=== PATIENT | female | born 1995 | race Caucasian/White ===

== ENCOUNTER 2023-02-03 08:41 | Outpatient (REF) | payer OTHER, SELFPAY ==
[2023-02-03 10:58] LABS: MANUAL DIFF FLAG NO
[2023-02-03 11:27] LABS: Basophils Absolute Auto 0.1 X10*3/uL (0.0-0.2); Eosinophils Absolute Auto 0.3 X10*3/uL (0.0-0.4); Eosinophils Percent Auto 4.6 % (0-4); Hematocrit 39.5 % (37.0-47.0); Imm Gran Abs Auto 0.01 X10*3/uL (0.00-0.03); Imm Gran Pct Auto 0.1 % (0.0-0.4); Lymphocytes Absolute Auto 2.6 X10*3/uL (1.2-4.9); Lymphocytes Percent Auto 39.2 % (20-40); Mean Corpuscular HGB Conc 32.9 g/dl (31.0-35.0); Mean Corpuscular Hemoglobin 29.1 pg (27.0-33.0); Mean Corpuscular Volume 88.4 fL (80.0-98.0); Mean Platelet Volume 10.4 fL (9.4-12.3); Monocytes Absolute Auto 0.3 X10*3/uL (0.1-1.2); Monocytes Percent Auto 4.8 % (2-11); Neutrophils Absolute Auto 3.4 x10*3/uL (2.0-8.3); Neutrophils Percent Auto 50.3 % (45-73); Platelet Count 430 X10*3/uL (160-400); Red Blood Count 4.47 X10*6/uL (4.20-5.50); Red Cell Distribution Width 12.5 % (11.0-16.0); White Blood Count 6.7 X10*3/uL (4.8-10.8)
[2023-02-03 11:29] LABS: Appearance Urine Clear; Color Urine Yellow; Glucose Urine UA Negative (Negative); Leukocyte Esterase Urine Negative (Negative); Nitrite Urine Negative (Negative); PH 6.5 (5.0-9.0); UMIC TRIGGER UA YES; Urine Blood Trace (Negative); Urine Ketones Negative (Negative); Urine Protein Negative (Neg-Trace)
[2023-02-03 11:41] LABS: Bacteria Urine None Seen (None Seen); Hyaline Casts Urine 0-2 /LPF (0-2); WBC Urine 0-5 /HPF (0-5)
[2023-02-03 11:49] LABS: Alanine Aminotransferase 11 U/L (0-31); Albumin Level 4.3 g/dL (3.5-5.0); Alkaline Phosphatase 67 U/L (39-117); Anion Gap 13 (12-20); Aspartate Amino Transferase 16 U/L (5-31); Bilirubin Total 0.7 mg/dL (0.0-1.0); Blood Urea Nitrogen 11 mg/dL (9-16); Calcium 10.1 mg/dL (8.4-10.2); Carbon Dioxide 24 mmol/L (22-29); Chloride 107 mmol/L (96-108); Cholesterol 207 mg/dL; Estimated Glomerular Filt Rate > 60; Glucose Fasting 88 mg/dL (60-99); HDL Cholesterol 56 mg/dL; LDL Cholesterol Calculated 135 mg/dl; Sodium 140 mmol/L (135-145); TSH reflex Free T4 1.57 uIU/mL (0.32-4.0); Total Protein 7.2 g/dL (6.5-8.0); Triglycerides 80 mg/dL
[2023-02-03 12:13] LABS: Creatinine Urine 224.23 mg/dL; Microalbum/Creatinine Ratio Ur 8.4 ug/mg cr
[2023-02-04 01:52] LABS: Syphilis Screen Nonreactive (Nonreactive)
[2023-02-04 03:13] LABS: HBS Num1 25.82 mIU/mL (0-7.99); HBc Num1 0.07 S/CO (0.00-0.79); HBsAGNum1 0.34 S/CO (0.00-0.99); HIV AB/AG Nonreactive (Nonreactive); HIV Num 1 0.06 S/CO (0.00-0.99); Hepatitis B Core Antibody Nonreactive (Nonreactive); Hepatitis B Surface Antigen Negative (Negative); ~HepC Num1 0.11 S/CO (0.00-0.79); ~Hepatitis B Surface Antibody REACTIVE (Nonreactive); ~Hepatitis C Antibody Nonreactive (Nonreactive)
[2023-02-05 22:33] LABS: TS Negative Control Passed; TS Panel A 0; TS Panel B 0; TS Positive Control Passed; TSpotTB Negative (Negative)
== END 2023-02-03 08:42 | disposition home or self-care (01) ==
LOC: HO.WFDLDS 08:41
PROVIDERS: Visit Provider Family Medicine
DX: Z00.00 Encounter for general adult medical examination without abnormal findings (principal); I10 Essential (primary) hypertension; Z11.1 Encounter for screening for respiratory tuberculosis; Z20.2 Contact with and (suspected) exposure to infections with a predominantly sexual mode of transmission
CPT/HCPCS: 36415; 80053; 80061; 81001; 82043; 84443; 85025; 86481; 86704; 86706; 86780; 86803; 87340; 87389

== ENCOUNTER 2023-08-05 08:52 | Outpatient (REF) | payer OTHER, SELFPAY ==
[2023-08-05 17:50] LABS: CT PCR NOT DETECTED (Not Detect.); NG PCR NOT DETECTED (Not Detect.)
[2023-08-07 14:30] LABS: BV Int Neg Control Negative (Negative); BV Int Pos Control Positive (Positive)
[2023-08-11 05:04] LABS: HPV mRNA E6/E7 rflx Not Detected (Not Detected)
== END 2023-08-05 08:53 | disposition home or self-care (01) ==
LOC: HO.LNP 08:52
PROVIDERS: PCP Family Medicine; Visit Provider Advanced Practice Midwife
DX: Z01.419 Encounter for gynecological examination (general) (routine) without abnormal findings (principal); Z11.51 Encounter for screening for human papillomavirus (HPV); Z20.2 Contact with and (suspected) exposure to infections with a predominantly sexual mode of transmission
CPT/HCPCS: 0353U; 87480; 87510; 87624; 87660; 88142

== ENCOUNTER 2023-08-05 08:52 | Outpatient (AMB) | payer OTHER, SELFPAY ==
[2023-08-05 09:06] VITALS: BP 126/80; BMI 30.8
--- NOTE | 2023-08-05 09:06 | MHC.OFFVIS ---
Intake Vital Signs 08/05/23 09:06 Height 5 ft 3 in Weight 174 lb BMI 30.8 BP 126/80 Intake Visit Reasons: New patient Annual Intake Note: would like fertility counseling. 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 Information Interpreted: non-clinical & clinical Outside Machinist Apprentice: Outside Machinist Apprentice Present ([facility]) Allergies No Known Allergies Allergy (Verified 08/05/23 09:11) Medication List - Last Reconciled 08/05/23 by Shariat Keane CNM multivitamin 1 tab PO DAILY Is last menstrual period known: Yes Last menstrual period: 07/27/23 Post menopausal: No HPI New patient Annual HPI Details Patient is here for new salon supervisor exam her only issue is questioning fertility she has been keeping track of her cycle for years and especially in the last year and sometimes has 24 days cycle sometimes 25 or 26 and sometimes 28 if she were to give it an average she would say 26 days. She is aware of ovulation and other factors in her cycle that change breast tenderness PMS cervical mucus changes. She has asked her to go get checked because she thinks it would be easier to get him checked out which it would. They are both trying to get healthier and go to the gym and are working on lowering there cholesterol. 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 She turned 28 in April. [facility] Family History Maternal Uncle Substance use disorder Maternal Grandmother Substance use disorder Social History Housing: House Patient Tobacco Use Status: Never used Tobacco e-Cigarette/Vaping Use: Never Used Current occupational status: employed and student Current occupation: [employer] [place] Female Reproductive History Menstrual Age of Menarche: 7 Duration of menses: 3-5 days Date of last menstrual period: 07/27/23 control method: none Total pregnancies: 0 Physical Exam Vital Signs: Last Vital Signs BP 126/80 08/05/23 09:06 BMI result Body Mass Index 30.8 Const General: healthy appearing, comfortable, no acute distress, well developed and alert Nutritional Appearance: average body habitus Orientation/consciousness: patient oriented x3 Limitations: no limitations HEENT Head: Yes normocephalic Neck Neck: Yes normal visual inspection Thyroid: Thyroid normal Chest Chest palpation & inspection: normal inspection of the chest Breast/axilla inspection: normal inspection of the breasts and normal inspection of the axillae Breast/axilla palpation: normal palpation of the breasts and normal palpation of the axillae Resp Effort & Inspection: normal respiratory effort GI Inspection: Yes normal to inspection, No Abdominal wall edema and No distended Palpation (GI): Soft to palpation and nontender Other: Normal salon supervisor exam external exam within normal limits vagina pink and moist cervix nulliparous with clear whitish scant discharge cervix is long close thick mobile midposition uterus feels midposition adnexa non enlarged non tender good tone with Kegel bladder is full. General: Yes bladder normal to palpation External Female Exam: normal external appearance and normal appearance of the urethra Speculum Exam - Vagina: normal appearance of the vagina, normal palpation and normal vaginal discharge Speculum Exam - Cervix: normal appearance of the cervix, normal palpation and nontender Bimanual exam- vagina & uterus: normal bimanual exam, normal palpation, uterine size normal, bladder normal to palpation, consistency normal, normal palpation, uterine mobility normal, uterine shape normal, No Cervical tenderness present, non-tender and no cervical motion tenderness Bimanual Exam- Adnexa, other: normal adnexae, no masses, normal and No adnexal tenderness Neuro General: patient oriented x3 Assessment & Plan Assessment & Plan (1) Screening for cervical cancer: Comment: pap done 08/05/23. Code(s): Z12.4 - Encounter for screening for malignant neoplasm of cervix (2) Well woman exam with routine gynecological exam: Code(s): Z01.419 - Encounter for gynecological examination (general) (routine) without abnormal findings (3) Laboratory exam ordered as part of routine general medical examination: Code(s): Z00.00 - Encounter for general adult medical examination without abnormal findings Plan -----Discussed in this visit the following: healthy balanced diet, regular and consistent exercise, getting recommended health screens, doing the best she can for her particular health concerns, kegel exercises, pap smear screening and followup recommendations, mammography screening and SBE, normal changes in cycles in her life stage--- .---I discussed with pt some of the optimal strategies for planning a , including achieving the best health she can before , including heathy balanced diet, exercise, wt loss to ideal BMI if appropriate, avoiding toxic substances and medications, not smoking, and taking a multivitamin w folic acid daily. Any specific health concerns should be managed before seeking/ putting oneself at risk of pregancy. In addition I reviewed normal cycles, fertility awareness and signs of ovulation, and timing to avoid, and achieve when she feel ready. I also discussed emotional and relationship and support readiness before embarking on . She and her are both fairly healthy There both checking things out I recommend that she keep track of her cycles as she has been doing for a good long time and in particular start documenting ovulation and she may want to be proactive and start doing 0 P Marianne's so she can have documented evidence for at least 6 months up to year if she did need to seek assistance with [facility] reproductive infertility and she could go armed with all of her information. Right now she is not trying as hard because she is in school but at some point she may endeavor to try harder to get . They are both working on getting healthier. Coding Level of Care Code New Pt Prev Care 18-39yr([id number] Diagnoses Screening for cervical cancer Z12.4 Well woman exam with routine gynecological exam Z01.419 Laboratory exam ordered as part of routine general medical examination Z00.00
== END 2023-08-05 09:55 | disposition home or self-care (01) ==
PROVIDERS: PCP Family Medicine; Visit Provider Advanced Practice Midwife
DX: Z01.419 Encounter for gynecological examination (general) (routine) without abnormal findings (principal); Z12.4 Encounter for screening for malignant neoplasm of cervix; Z00.00 Encounter for general adult medical examination without abnormal findings
CPT/HCPCS: 99385

== ENCOUNTER 2024-01-20 13:57 | Outpatient (REF) | payer OTHER, SELFPAY ==
[2024-01-21 03:55] LABS: CT PCR NOT DETECTED (Not Detect.); NG PCR NOT DETECTED (Not Detect.)
[2024-01-21 09:23] LABS: Bacterial Vaginosis PCR NEGATIVE (Negative); Candida Group PCR NOT DETECTED (Not Detect); Candida glab krusei PCR NOT DETECTED (Not Detect); Trichomonas vaginalis PCR NOT DETECTED (Not Detect)
== END 2024-01-20 13:58 | disposition home or self-care (01) ==
LOC: HO.LAB 13:57
PROVIDERS: PCP Family Medicine; Visit Provider Advanced Practice Midwife
DX: Z01.419 Encounter for gynecological examination (general) (routine) without abnormal findings (principal); N89.8 Other specified noninflammatory disorders of vagina
CPT/HCPCS: 0352U; 0353U; 99212

== ENCOUNTER 2024-01-20 13:57 | Outpatient (AMB) | payer OTHER, SELFPAY ==
[2024-01-20 14:09] VITALS: BMI 31.5
--- NOTE | 2024-01-20 14:09 | A.OFFVIS_ITS ---
Vital Signs 01/20/24 14:09 Height 5 ft 3 in Weight 178 lb BMI 31.5 Intake Visit Reasons: ? bv Cowlman Required: No Information Interpreted: clinical only Digital Marketing Manager: Digital Marketing Manager Present Allergies No Known Allergies Allergy (Verified 01/20/24 14:09) Medication List - Last Reconciled 01/20/24 by Sharita Keane CNM multivitamin 1 tab PO DAILY Is last menstrual period known: Yes Last menstrual period: 01/15/24 Do you need a note to return to daycare/school/sports/work: No HPI HPI ? bv: Details: Patient is here with her to discuss vaginal discomfort itching she did not think it had an odor she started with symptoms 2 days before her. She was wearing panty liners or anything she then got her period in her menses is ending now. She used boric acid capsule on the Tuesday before her period came when the symptoms started and it made it a bit better. On a scale 0-10 she would say it has about a 5 of discomfort in itchiness today no particular discharge but it is hard to say becauseof her period. PFSH Family History Maternal Uncle Substance use disorder Maternal Grandmother Substance use disorder Social History Housing: House Patient Tobacco Use Status: Never used Tobacco e-Cigarette/Vaping Use: Never Used Current occupational status: employed and student Current occupation: [employer] [place] Female Reproductive History Menstrual Age of Menarche: 7 Duration of menses: 3-5 days Date of last menstrual period: 01/15/24 control method: none Total pregnancies: 0 Date of last pap smear: 08/09/23 (negative) History of abnormal pap smear: No Physical Exam Vital Signs: BMI result Body Mass Index 31.5 Other: External vulva within normal limits labia minora slightly reddened consistent with possible mild yeast. Vaginal discharge consistent with scant end of menses nulliparous cervix pink healthy closed. External Female Exam: normal external appearance and normal appearance of the urethra Speculum Exam - Vagina: normal appearance of the vagina and normal vaginal discharge Speculum Exam - Cervix: normal appearance of the cervix and Cervical os closed Assessment & Plan Assessment & Plan (1) Screening for cervical cancer: Comment: pap done 08/05/23= negative with negative HPV. Code(s): Z12.4 - Encounter for screening for malignant neoplasm of cervix Category: Medical Plan Discussed our normal vaginal addie and the wide variety of abundant bacteria and fungus I and mucus components that may get up in a complex changing environment responding to anything that we put in and substances we may use for cleansing or wiping as well as sexual intercourse and any introduced bacteria and viruses. Discussed the hormonal shifts that happen through a normal menstrual cycle contributing to changes in the vaginal discharge from clear after the the period- To clear and white slippery and abundant like egg white around the time of ovulation, followed by a thickening and drying of the scant white mucus afterwards until a new period Comes. All of these changes are responding to the hormonal shifts in our cycle. Also discussed the limitations of our testing, which are testing for the DNA of the following microbes. Currently, one of the tests we have includes a test that tests for Gardnerella, zane, and trichomoniasis (which is an STD). The other test we use tests concurrently for the presence of chlamydia and gonorrhea. As both of these are not normal vaginal addie, but instead are only sexually transmitted they are in fact in STD or STI, and do need to be treated as well as the partner needs to be treated The presence of Gardnerella does not necessarily mean that we have bacterial vaginosis but the syndrome of bacterial vaginosis includes the creamy adherent discharge that clings to the epithelial cells of the vaginal wall and coats the cells with bacteria and Im part fishy odor when the pH of the environment is altered by either menstrual flow urine or semen or other products. If this discharge is also accompanied by itching and discomfort and any other symptoms than it is worth treating . The presence of Zane alone does not necessarily mean a yeast infection but if there is itching burning vaginal redness and irritation then then that is an indication of a yeast infection and is definitely worth treating. Both of these conditions can be in part prevented by use of cotton under clothing, avoidance of tight clothing in general allowing air to vaginal areas and vulva avoidance of other soaps and scented products and chemicals, and condom use. In addition avoidance of menstrual sanitary products like pads and panty liners can contribute to better health as well. Discussed all the above in some detail she is in school for dental hi to discussed some of the common allergies between vaginal or mucosa and health and normal addie. Discussed also in quite some detail the role air and allowing as much air to flow as possible to our vagina is with use of cotton underwear and how even a little Spandex can make a difference. Offered and sent a prescription for Monistat 7 to her pharmacy that she can use and have available. Orders: Orders CT NG by PCR Today Z01.419 - Encounter for gynecological examination (general) (routine) without abnormal findings Bacterial Vaginosis Panel Today N89.8 - Other specified noninflammatory disorders of vagina Medications: New miconazole nitrate 2% (Miconazole-7) 1 appful vaginal BEDTIME 45 grams 2RF 7 days Coding Level of Care Code Est Pt Level 3 (34037) Diagnoses Screening for cervical cancer Z12.4
== END 2024-01-20 15:02 | disposition home or self-care (01) ==
PROVIDERS: PCP Family Medicine; Visit Provider Advanced Practice Midwife
DX: Z12.4 Encounter for screening for malignant neoplasm of cervix (principal)
CPT/HCPCS: 99213

== ENCOUNTER 2024-02-06 15:48 | Outpatient (AMB) | payer OTHER, SELFPAY ==
--- NOTE | 2024-02-06 15:54 | MHC.PC.OV ---
Vital Signs 02/06/24 15:57 Height 5 ft 3 in Weight 177 lb 8 oz BMI 31.4 BP 120/70 Blood Pressure Location Lt brachial Position Sitting Pulse 78 Pulse Source Pulse Oximeter Pulse Oximetry (%) 99 Oxygen Delivery Method Room Air Intake Visit Reasons: CPE with follow-up labs and health maintenance Intake Note: Patient is here for her physical today. Patient needs Tspot test for school. Allergies No Known Allergies Allergy (Verified 02/06/24 15:58) Tobacco use date assessed: 02/06/24 Dental Screening Dental Screen Date: 02/06/24 Did you have a dental visit in the last 12 months?: Yes Did you have a dental problem in the last 6 months where you did not have access to dental care?: No Was dental information given to patient?: Patient has dentist HPI CPE with follow-up labs and health maintenance HPI Details 28 y/o female presents for a CPE with f/u labs and health maintenance. No recent labs to review. HPI Comments History of Present Illness Details Documentation assistance for Jonnathan De Los Santos MD, was provided by Francis Gregory, Institutional Commodity Analyst on 02/06/2024 at 4:34 PM EST. I, Dr. De Los Santos, have read, observed, and verified documentation. PFSH Family History Maternal Uncle Substance use disorder Maternal Grandmother Substance use disorder Social History Housing: House Patient Tobacco Use Status: Never used Tobacco e-Cigarette/Vaping Use: Never Used Current occupational status: employed and student Current occupation: [employer] Cognitive needs: No Hearing needs: No Vision needs: No Female Reproductive History Menstrual Age of Menarche: 7 Questionnaire PHQ-9 Over the last 2 weeks, how often have you been bothered by any of the following problems? 1. Little interest or pleasure in doing things: not at all 2. Feeling down, depressed, or hopeless: not at all 3. Trouble falling or staying asleep, or sleeping too much: not at all 4. Feeling tired or having little energy: not at all 5. Poor appetite or overeating: not at all 6. Feeling bad about yourself - or that you are a failure or have let yourself or your family down: not at all 7. Trouble concentrating on things, such as reading the newspaper or watching television: not at all 8. Moving or speaking so slowly that other people could have noticed. Or the opposite - being so fidgety or restless that you have been moving around a lot more than usual: not at all 9. Thoughts that you would be better off or of hurting yourself in some way: not at all Total score: 0 Depression Screening Interpretation: Negative Depression Screening Done: Yes Source: Developed by Drs. Donald French, Dianne Glover, Jone Cruz and colleagues, with an educational gregory from [employer]. Thrive Questionnaire Date Thrive assessed: 02/06/24 I am a: Patient What is your living situation today?: I have a steady place to live Within the past 12 months, did the food you bought not last and you didn't have the money to get more?: Never true Within the past 12 months, did you worry whether your food would run out before you got money to buy more?: Never true Do you have trouble paying for medicines?: No Do you have trouble getting transportation to medical appointments?: No Do you have trouble paying your heating and electricity bill?: No Do you have trouble taking care of your child, family member or friend?: No Do you have trouble with day-to-day activities such as bathing, preparing meals, shopping, managing finances, etc.?: No Are you currently unemployed and looking for a job?: No Are you interested in more education?: No THRIVE Score: 0 AUDIT C Alcohol Use Questionnaire (AUDIT-C) 1. How often do you have a drink containing alcohol?: Monthly or less 2. How many drinks containing alcohol do you have on a typical day when you are drinking?: 1 or 2 3. How often do you have six or more drinks on one occasion?: Never Total Score: 1 ROBERTO-7 AMB Questionnaire ROBERTO-7 Date ROBERTO - 7 assessed: 02/06/24 Feeling nervous, anxious, or on edge: 0 = Not at all Not being able to stop or control worryin = Not at all Worrying too much about different things: 0 = Not at all Trouble relaxin = Not at all Being so restless that it is hard to sit still: 0 = Not at all Becoming easily annoyed or irritable: 0 = Not at all Feeling afraid as if something awful might happen: 0 = Not at all Total ROBERTO-7 score (0-4 normal; 5-9 mild; 10-14 moderate; 15-21 severe): 0 Source: Developed by Drs. Donald French, Dianne Glover, Jone Cruz and colleagues, with an educational gregory from [employer]. ROBERTO-7 Assessment Billing ROBERTO-7 Assessment Tool: ROBERTO-7 Assessment 85321 Review of Systems Const Denies chills, Denies fatigue, Denies fever(s), Denies headache(s) and Denies weakness Eyes Denies change in vision ENT Denies dizziness, Denies headache(s), Denies hearing loss, Denies nasal congestion, Denies sinus pain, Denies sinus pressure and Denies sore throat Card Denies chest pain, Denies lightheadedness, Denies dyspnea and Denies other (palpitations) Resp Denies cough, Denies dyspnea and Denies wheezing GI Denies abdominal pain, Denies melena, Denies hematochezia, Denies change in bowel habits, Denies dyspepsia and Denies nausea Denies hematuria and Denies dysuria Musc Denies abnormal gait, Denies myalgias, Denies arthralgias, Denies numbness and Denies tingling Skin/Breast Denies rash, Denies unusual bruising and Denies wounds Neuro Denies abnormal gait, Denies dizziness, Denies headache(s), Denies memory loss, Denies numbness, Denies Sensory deficit (Neuro), Denies tingling and Denies weakness Psych Denies anxiety, Denies depression and Denies memory loss Endo Denies cold intolerance, Denies fatigue, Denies heat intolerance, Denies polydipsia and Denies polyuria Marcio/Lymph Denies easy bleeding and Denies easy bruising Aller/Immun Denies wheezing Physical exam (Primary Care) Vital Signs: Last Vital Signs Pulse 78 02/06/24 15:57 BP 120/70 02/06/24 15:57 Pulse Ox 99 02/06/24 15:57 Oxygen Delivery Method Room Air 02/06/24 15:57 BMI result Body Mass Index 31.4 Tobacco/Smoking Status: Tobacco use Status Tobacco use date assessed 02/06/24 02/06/24 16:08 Patient Tobacco Use Status Never used Tobacco 02/06/24 16:08 e-Cigarette/Vaping Use Never Used 02/06/24 16:08 PHQ-9: PHQ-9 Score PHQ-9: Total score 0 02/06/24 16:33 Depression Screening Interpretation: Negative Thrive Assessment: Date of Thrive Assessment Date Thrive assessed 02/06/24 02/06/24 16:08 Const General: no acute distress, well developed, alert and awake Nutritional Appearance: well nourished Orientation/consciousness: patient oriented x3 HENMT Head: Yes normocephalic and Yes atraumatic Ears: hearing grossly normal bilaterally and TM's normal bilaterally General nose exam: Normal external nose present and Normal nares present Mouth: Normal oral and palatal mucosa present and moist mucous membranes Teeth and gingiva: dentition normal Throat: Yes posterior oropharynx normal Eyes General: appearance normal, both eyes and all related structures Pupils: Equal, round and reactive pupils present and Pupil accommodation reflex normal EOM: EOMs intact bilaterally Neck Neck: Yes normal visual inspection, Yes no lymphadenopathy and Yes trachea midline Thyroid: Thyroid normal Carotids: no bruits Lymphatic: no lymphadenopathy noted Chest Chest palpation & inspection: normal inspection of the chest Resp Effort & Inspection: normal respiratory effort Auscultation: clear to auscultation bilaterally Cardio Rate: regular rate Rhythm: regular rhythm Heart sounds: S1 normal heart sound present, S2 normal heart sound present, no gallops, no murmurs and no rubs Bruits: no abdominal aortic bruits and no carotid bruits GI Palpation (GI): No Abdominal aortic bruit present, Soft to palpation, nontender, No hepatosplenomegaly present and No Rebound tenderness present Auscultation: normal bowel sounds General: Yes no CVA tenderness Back/Spine/Pelvis Back: no CVA tenderness Cervical Spine: cervical ROM normal and No Cervical spine tenderness Thoracic/Lumbar Spine: thoraco-lumbar ROM normal, No pain with thoraco-lumbar ROM, No thoracic spinal tenderness and No lumbar spinal tenderness Skin Lesions: no lesions Rashes: no rashes Trauma: no lacerations or abrasions Wounds: no wounds Nails: normal Neuro General: patient oriented x3 Cranial nerves: Yes Equal, round and reactive pupils present Cognition (Neuro): normal cognition Gait exam (Neuro): Normal gait present Motor exam (neuro): 5 motor strength present throughout Sensory Exam: No Sensory deficit (Neuro) Deep tendon reflexes (DTR's): Right patellar reflex intensity grade: 2+ and Left patellar reflex intensity grade: 2+ Extrem General: Yes normal to inspection and No edema Psych Appearance: grossly normal Affect: normal affect Attitude: cooperative Thought process: Normal thought process present Assessment and Plan Assessment & Plan (1) Adult general medical exam: Code(s): Z00.00 - Encounter for general adult medical examination without abnormal findings Plan: Old?female?presents?for?complete?physical?exam (2) Screening for cervical cancer: Comment: pap done 08/05/23= negative with negative HPV. Code(s): Z12.4 - Encounter for screening for malignant neoplasm of cervix Plan: Followed?by?Sharita?[place] Up-to-date Continue?screening?with?plant maintenance manager (3) Screening for tuberculosis: Code(s): Z11.1 - Encounter for screening for respiratory tuberculosis Plan: Needs?TB?screening?for?school Check?T?spot No?symptoms (4) Localized swelling, mass and lump, neck: Code(s): R22.1 - Localized swelling, mass and lump, neck Plan: Tiny?lump?at?left?SCM, approximately?0.25?cm?and?patient?says?this?is?getting?smaller Likely?reactive?lymph?node?as?she?notes?she?has?had?allergies?lately She?will?let?me?know?if?this?returns?or?increases?in?size - could?check?ultrasound Orders: Orders T Spot TB Today Z11.1 - Encounter for screening for respiratory tuberculosis Coding Level of Care Code Est Pt Level 3 (42352) Est Pt Prev Care 18-39y(21380) Diagnoses Adult general medical exam Z00.00 Screening for cervical cancer Z12.4 Screening for tuberculosis Z11.1 Localized swelling, mass and lump, neck R22.1 Additional Codes ROBERTO-7 Assessment Billing - ROBERTO-7 Assessment Tool: ROBERTO-7 Assessment 29789 ([id number])
[2024-02-06 15:57] VITALS: BP 120/70; PULSE 78; O2SAT 99; BMI 31.4
== END 2024-02-06 16:47 | disposition home or self-care (01) ==
PROVIDERS: PCP Family Medicine; Visit Provider Family Medicine
DX: Z00.00 Encounter for general adult medical examination without abnormal findings (principal); Z11.1 Encounter for screening for respiratory tuberculosis; R22.1 Localized swelling, mass and lump, neck
CPT/HCPCS: 99395

== ENCOUNTER 2024-02-07 10:02 | Outpatient (REF) | payer OTHER, SELFPAY ==
[2024-02-07 12:15] LABS: MANUAL DIFF FLAG NO
[2024-02-07 12:21] LABS: Basophils Absolute Auto 0.1 X10*3/uL (0.0-0.2); Basophils Percent Auto 0.7 % (0-2); Eosinophils Absolute Auto 0.2 X10*3/uL (0.0-0.4); Eosinophils Percent Auto 2.8 % (0-4); Hemoglobin 12.6 g/dl (12.0-16.0); Imm Gran Abs Auto 0.02 X10*3/uL (0.00-0.03); Imm Gran Pct Auto 0.3 % (0.0-0.4); Lymphocytes Absolute Auto 2.5 X10*3/uL (1.2-4.9); Lymphocytes Percent Auto 33.4 % (20-40); Mean Corpuscular HGB Conc 33.2 g/dl (31.0-35.0); Mean Corpuscular Volume 87.4 fL (80.0-98.0); Monocytes Absolute Auto 0.4 X10*3/uL (0.1-1.2); Monocytes Percent Auto 4.8 % (2-11); Neutrophils Absolute Auto 4.3 x10*3/uL (2.0-8.3); Platelet Count 402 X10*3/uL (160-400); Red Blood Count 4.35 X10*6/uL (4.20-5.50); Red Cell Distribution Width 12.7 % (11.0-16.0); White Blood Count 7.4 X10*3/uL (4.8-10.8)
[2024-02-07 12:43] LABS: Appearance Urine Clear; Color Urine Yellow; Glucose Urine UA Negative (Negative); Leukocyte Esterase Urine Negative (Negative); Nitrite Urine Negative (Negative); PH 6.5 (5.0-9.0); Specific Gravity - Urine 1.015 (1.005-1.025); Urine Blood Negative (Negative); Urine Ketones Negative (Negative); Urine Protein Negative (Neg-Trace)
[2024-02-07 13:20] LABS: Alanine Aminotransferase 12 U/L (0-31); Albumin Level 4.2 g/dL (3.5-5.0); Alkaline Phosphatase 62 U/L (39-117); Anion Gap 15 (12-20); Aspartate Amino Transferase 15 U/L (5-31); Bilirubin Total 0.7 mg/dL (0.0-1.0); Blood Urea Nitrogen 10 mg/dL (9-16); Calcium 9.4 mg/dL (8.4-10.2); Carbon Dioxide 22 mmol/L (22-29); Chloride 106 mmol/L (96-108); Cholesterol 196 mg/dL (<200); Estimated Glomerular Filt Rate > 60; Glucose Fasting 72 mg/dL (60-99); HDL Cholesterol 51 mg/dL (>40); LDL Cholesterol Calculated 124 mg/dL (<100); Potassium 3.6 mmol/L (3.3-5.1); Sodium 139 mmol/L (135-145); Total Protein 7.2 g/dL (6.5-8.0); Triglycerides 107 mg/dL (<150)
[2024-02-07 13:38] LABS: TSH reflex Free T4 1.44 uIU/mL (0.32-4.0)
[2024-02-07 13:54] LABS: Creatinine Urine 131.07 mg/dL; Microalbum/Creatinine Ratio Ur 7.6 ug/mg cr (<30)
[2024-02-10 07:54] LABS: TS Negative Control Passed; TS Panel A 0; TS Panel B 0; TS Positive Control Passed; TSpotTB Negative (Negative)
== END 2024-02-07 10:03 | disposition home or self-care (01) ==
LOC: HO.WFDLDS 10:02
PROVIDERS: Visit Provider Family Medicine
DX: Z00.00 Encounter for general adult medical examination without abnormal findings (principal); I10 Essential (primary) hypertension; Z11.1 Encounter for screening for respiratory tuberculosis
CPT/HCPCS: 36415; 80053; 80061; 81003; 82043; 82570; 84443; 85025; 86481

== ENCOUNTER → 2024-03-15 15:50 | Outpatient (AMB) | payer OTHER, SELFPAY ==
--- NOTE | 2024-03-15 15:48 | MHC.PC.OV ---
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 Labs were drawn 02/07/24. Reviewed labs with pt. Triglycerides 107. TC 196. LDL 124. HDL 51. TSH 1.44. PFSH Family History Maternal Uncle Substance use disorder Maternal Grandmother Substance use disorder Social History Housing: House Patient Tobacco Use Status: Never used Tobacco e-Cigarette/Vaping Use: Never Used Current occupational status: employed and student Current occupation: [employer] Cognitive needs: No Hearing needs: No Vision needs: No Female Reproductive History Menstrual Age of Menarche: 7 Questionnaire Thrive Questionnaire Date Thrive assessed: 02/06/24 ROBERTO-7 AMB Questionnaire ROBERTO-7 Date ROBERTO - 7 assessed: 02/06/24 Source: Developed by Drs. Donald French, Dianne Glover, Jone Cruz and colleagues, with an educational gregory from [employer]. Review of Systems Const Denies chills, Denies fatigue, Denies fever(s), Denies headache(s) and Denies weakness ENT Denies dizziness and Denies headache(s) Card Denies dyspnea Resp Denies cough, Denies dyspnea, Denies wheezing and Denies other (shortness of breath) Musc Denies numbness and Denies tingling Neuro Denies dizziness, Denies headache(s), Denies numbness, Denies tingling and Denies weakness Psych Denies anxiety and Denies depression Endo Denies fatigue Aller/Immun Denies wheezing Physical exam (Primary Care) Tobacco/Smoking Status: Tobacco use Status Tobacco use date assessed 02/06/24 03/15/24 15:50 Patient Tobacco Use Status Never used Tobacco 03/15/24 15:50 e-Cigarette/Vaping Use Never Used 03/15/24 15:50 Thrive Assessment: Date of Thrive Assessment Date Thrive assessed 02/06/24 03/15/24 15:50 Telehealth Telehealth Telehealth Platform: Telephone Location of provider rendering services: practice address Location of patient: address on file Patient Identification confirmed using: Name, : Yes Telehealth method: voice only Patient verbally consented to treatment: Yes Patient verbally consented to billing insurance company: Yes Patient informed of any privacy concerns related to visit: Yes Minutes spent on Phone/Video with Pt.: 5 Assessment and Plan Assessment & Plan (1) Elevated cholesterol: Code(s): E78.00 - Pure hypercholesterolemia, unspecified Plan: Mildly?elevated?LDL?cholesterol Encouraged?a?diet?low?in?saturated?fats?and?cholesterol Will?continue?to?monitor Orders: Orders TSH reflex Free T4 Today Z00.00 - Encounter for general adult medical examination without abnormal findings UA and rflx microscopic Today Z00.00 - Encounter for general adult medical examination without abnormal findings Comprehensive [place]. Panel Fast Today Z00.00 - Encounter for general adult medical examination without abnormal findings Complete Blood Count Auto Diff Today Z00.00 - Encounter for general adult medical examination without abnormal findings Lipid Panel Today Z00.00 - Encounter for general adult medical examination without abnormal findings Microalbumin, Random (w Creat) Today I10 - Essential (primary) hypertension Coding Level of Care Code Tele Est Pt Level 2 (97308) Diagnoses Elevated cholesterol E78.00
== END ==
LOC: HO.HMGFM 15:50
PROVIDERS: PCP Family Medicine; Visit Provider Family Medicine
DX: E78.00 Pure hypercholesterolemia, unspecified (principal)
CPT/HCPCS: 99212

== ENCOUNTER 2024-11-14 12:55 | Outpatient (AMB) | payer OTHER, SELFPAY ==
--- NOTE | 2024-11-14 12:56 | A.OFFVIS_ITS ---
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 She is not having any issues or concerns with vaginal discharge or anything this year her last Pap smear was negative in 2022. So we discussed that her next Pap smear would be due with Co testing in 2025. She has begun to notice that that many things are tied to her diet including more sugar in her diet can lead to more vaginal itching or more sugar or spicy foods can contribute to crampier heavier periods as well. In addition if she feels itchy if she allows air to her vulva it takes care of it. She is not at all worried about any STIs and does not need any tests for infections this year at all. She is and her is not fertile and the only way it would work for them to conceive would be for them to collect and concentrate sperm f rom him and go through IVF and she is not interested in going through the so she feels fine about that. She gets her regular periods and everything is fine she is trying to eat well she does a little bit of everything for exercise including stretching yoga exercise at home walking going to the gym. 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 Her 's in the and they will be moving to [place] next year near [place]. . PFSH Family History Maternal Uncle Substance use disorder Maternal Grandmother Substance use disorder Social History Housing: House Patient Tobacco Use Status: Never used Tobacco e-Cigarette/Vaping Use: Never Used Current occupational status: employed and student Current occupation: [employer] Cognitive needs: No Hearing needs: No Vision needs: No Female Reproductive History Menstrual Age of Menarche: 7 Duration of menses: 3-5 days Date of last menstrual period: 11/07/24 Total pregnancies: 0 Date of last pap smear: 08/05/23 (negative pap smear, negativ hpv) History of abnormal pap smear: No Physical Exam Vital Signs: Last Vital Signs BP 122/72 11/14/24 13:02 BMI result Body Mass Index 30.1 Const General: healthy appearing, comfortable, no acute distress, well developed and alert Nutritional Appearance: average body habitus Orientation/consciousness: patient oriented x3 Limitations: no limitations HEENT Head: Yes normocephalic Neck Neck: Yes normal visual inspection Chest Chest palpation & inspection: normal inspection of the chest Breast/axilla inspection: normal inspection of the breasts and normal inspection of the axillae Breast/axilla palpation: normal palpation of the breasts and normal palpation of the axillae Resp Effort & Inspection: normal respiratory effort GI Inspection: Yes normal to inspection, No Abdominal wall edema and No distended Palpation (GI): Soft to palpation and nontender Other: Normal external exam normal pink healthy vagina cervix nulliparous pink fairly smooth no abnormal discharge discharge is thin and white and scant. Cervix long close thick mobile nontender uterus midposition mobile nontender adnexa nontender good tone with. Kegel General: Yes bladder normal to palpation External Female Exam: normal external appearance and normal appearance of the urethra Speculum Exam - Vagina: normal appearance of the vagina, normal palpation and normal vaginal discharge Speculum Exam - Cervix: normal appearance of the cervix, normal palpation and nontender Bimanual exam- vagina & uterus: normal bimanual exam, normal palpation, uterine size normal, bladder normal to palpation, consistency normal, normal palpation, uterine mobility normal, uterine shape normal, No Cervical tenderness present, non-tender and no cervical motion tenderness Bimanual Exam- Adnexa, other: normal adnexae, no masses, normal and No adnexal tenderness Neuro General: patient oriented x3 Results Reviewed Results Reviewed: Name: Kati Brush Age/Sex: 28/F Attending: Sharita Keane CNM : 1995 Submitted by: Sharita Keane CNM Copies to: Jonnathan De Los Santos MD MR #: [id number] Status: DEP REF Collected: 08/05/23 [facility] Received: 08/09/23 Interpretation Satisfactory for evaluation. Negative for intraepithelial lesion or malignancy. HPV mRNA E6/E7: NOT DETECTED This assay detects E6/E7 viral messenger RNA (mRNA) from 14 high-risk HPV types (16, 18, 31, 33, 35, 39, 45, 51, 52, 56, 58, 59, 66, 68) HPV testing performed by [facility], [place], [place]. See reference labo ratory portion of the EMR for entire report. Clinical Information LMP: 07/27/23 Previous PAP test: Unknown date/findings Material Received ThinPrep-Cervical Copies To Jonnathan De Los Santos MD [address] [place] [address]. [place], [place] [id number] Sharita Keane CNM [address] [place] [address] Dr. De Los Santos [address] [place] [address] [phone] Electronically Signed By: MAUREEN Ricks (ASCP) 08/15/23 5748 The Pap Test is a screening procedure with the inherent possibility of both false negative and false positive results. Results should be interpreted in the context of historic and current clinical findings. Reliability of the Pap Test is enhanced by performing the test on a regular repetitive basis. Patient: Kati Brush Age/Sex: 28/F MR#: [id number] Page 1 of 1 Name: Kati Brush Age/Sex: 28/F : 1995 Unit#: [id number] Attend Dr: Sharita Kaene [facility] Re01/20/24 Status: DEP REF Location: .LAB Disch: SPEC : [id number] TANO: 01/20/24-UNK STATUS: COMP REQ : [id number] RECD: 01/20/[address] [facility] [address]: Sharita Keane CNM COMP: 01/21/24 ENTERED: 01/20/[address] [facility] [address]: Jonnathan De Los Santos MD ORDERED: BV Panel Test Result Flag Reference TV PCR NOT DETECTED Not Detect BV PCR NEGATIVE Negative The BV organism targets of the Xpert Xpress MVP test can be commensal in women; Xpert Xpress MVP positive results for bacterial vaginosis should be considered in conjunction with other clinical and patient information to determine the disease status. Organisms that are not detected by the Xpert Xpress MVP test have also been reported to be associated with BV and aerobic vaginitis. The Xpert Xpress MVP test performance has not been evaluated in patients under the age of 14. Grace Grp PCR NOT DETECTED Not Detect Can gla-kru NOT DETECTED Not Detect END OF REPORT Assessment & Plan Assessment & Plan (1) Screening for cervical cancer: Comment: pap done 08/05/23= negative with negative HPV., - will be due for next Pap with HPV code testing in 2025. Code(s): Z12.4 - Encounter for screening for malignant neoplasm of cervix Category: Medical (2) Well woman exam with routine gynecological exam: Code(s): Z01.419 - Encounter for gynecological examination (general) (routine) without abnormal findings Category: Medical (3) Family planning: Comment: States is has essentially no sperm count,, and conception would require IVF, and she has decided she is not interested in that. Code(s): Z30.09 - Encounter for other general counseling and advice on contraception Category: Social Hx Plan -----Discussed in this visit the following: healthy balanced diet, regular and consistent exercise, getting recommended health screens, doing the best she can for her particular health concerns, kegel exercises, pap smear screening and followup recommendations, mammography screening and SBE, normal changes in cycles in her life stage--- . Discussed her excellent self-care. 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 They will be moving to [place] next year so she will not returning for annuals here.. Coding Level of Care Code Est Pt Prev Care 18-39y(11836) Diagnoses Screening for cervical cancer Z12.4 Well woman exam with routine gynecological exam Z01.419 Family planning Z30.09
[2024-11-14 13:02] VITALS: BP 122/72; BMI 30.1
== END 2024-11-14 14:33 | disposition home or self-care (01) ==
LOC: HO.HWSM 12:56
PROVIDERS: PCP Family Medicine; Visit Provider Advanced Practice Midwife
DX: Z01.419 Encounter for gynecological examination (general) (routine) without abnormal findings (principal)
CPT/HCPCS: 99395; 99459

== ENCOUNTER → 2024-11-14 12:55 | Outpatient (BNVA) | payer OTHER, SELFPAY | PROVIDERS: PCP Family Medicine; Visit Provider Advanced Practice Midwife | DX: Z01.419 Encounter for gynecological examination (general) (routine) without abnormal findings (principal); Z12.4 Encounter for screening for malignant neoplasm of cervix; Z30.09 Encounter for other general counseling and advice on contraception | CPT/HCPCS: 99395; 99459 ==